=== PATIENT | female | born 1955 | race Hispanic/Latino ===

== ENCOUNTER 2016-12-30 08:47 | Day surgery (SDC) | payer MEDICARE, MEDICAID ==
[2016-11-28 13:22] VITALS: BMI 25.1
[2016-12-30] MEDS ORDERED: Lactated Ringer's 500 ML IV ONE (09:36)
[2016-12-30] MEDS ORDERED: Propofol 10 mg/ml Inj (20 ML) ONE (10:47)
[2016-12-30 11:31] VITALS: TEMP 97.5
[2016-12-30 11:47] VITALS: PULSE 66; RESP 18; O2SAT 98
[2016-12-30 11:53] VITALS: BP 110/67
== END 2016-12-30 11:58 | disposition home or self-care (01) ==
LOC: H.ENDO 08:47
PROVIDERS: ATTEND Internal Medicine Gastroenterology
DX: Z12.11 Encounter for screening for malignant neoplasm of colon (principal); I10 Essential (primary) hypertension; R13.10 Dysphagia, unspecified; K64.0 First degree hemorrhoids; K30 Functional dyspepsia; K22.8 Other specified diseases of esophagus; K20.9 Esophagitis, unspecified; K29.70 Gastritis, unspecified, without bleeding
CPT/HCPCS: 43239; 45378; 88104; 88305; J2001; J2704; J7120